=== PATIENT | male | born 1970 | race African-American/Black ===

== ENCOUNTER 2016-04-17 13:01 | Emergency (ER) | payer OTHER ==
[~2016-04-17] VITALS: Ht 185.4 cm; Wt 79.7 kg
[~2016-04-17 13:01] MED LIST: AUGMENTIN875 MG PO; CLINDAMYCIN HC300 MG PO; DOXEPIN HCL100 MG PO; KEFLEX500 MG PO; MOTRIN600 MG PO; NAPROSYN500 MG PO; NORCO 5/3251 TABLET PO; NORCO 7.5/321 TABLET PO; POTASSIUM CHLO10 ME3 PO; SUBOXONE 4 MG-1 EACH SL; SUBOXONE 8 MG-1 EAC2 SL; ZITHROMAX250 MG PO; ZOFRAN ODT4 MG PO
[2016-04-17 13:40] VITALS: BP 130/91
== END 2016-04-17 14:08 | disposition left against medical advice (07) ==
LOC: EME 13:01
DX: R11.10 Vomiting, unspecified (principal); Z53.21 Procedure and treatment not carried out due to patient leaving prior to being seen by health care provider; F19.20 Other psychoactive substance dependence, uncomplicated; F17.200 Nicotine dependence, unspecified, uncomplicated
CPT/HCPCS: 80053; 81003; 85027

== ENCOUNTER 2016-05-27 06:25 | Emergency (ER) | payer OTHER ==
[~2016-05-27] VITALS: Ht 188 cm; Wt 87.5 kg
[2016-05-27 07:27] LABS: EOSINOPHIL (%) 1.6 % (0-5); EOSINOPHIL COUNT 0.2 K/uL (0-0.3); HEMATOCRIT 35.1 % (38.0-50.0); IMMATURE GRANULOCYTE (%) 0.3 % (0.0-0.7); INSTRUMENT ABS NEUTROPHIL CT 5.4 K/uL; LYMPHOCYTE COUNT 2.8 K/uL (1.0-2.8); MCH 26.8 PG (29.0-34.0); MCHC 32.2 G/DL (30.0-36.0); MCV 83.4 FL (86-99); MEAN PLAT.VOLUME 9.3 uM^3 (9.0-12.4); MONOCYTE (%) 9.5 % (3-12); MONOCYTE COUNT 0.9 K/uL (0-0.8); NEUTROPHIL (%) 58.1 % (45-76); NEUTROPHIL COUNT 5.4 K/uL (1.8-6.4); PLATELET COUNT 356 K/uL (156-360); RBC DIS.WIDTH-SD 48.8 % (39-53); RED BLOOD COUNT 4.21 M/uL (4.00-5.50); WHITE BLOOD COUNT 9.3 K/uL (4.1-10.2)
[2016-05-27 07:58] LABS: CHLORIDE 105 mEq/L (99-109); POTASSIUM 3.8 mEq/L (3.7-5.4); SODIUM 141 mEq/L (136-147)
[2016-05-27 08:00] LABS: GLUCOSE 101 mg/dL (70-99)
[2016-05-27 08:01] LABS: ANION GAP 8 MEQ/L (2-14)
[2016-05-27 08:03] LABS: SERUM ETHYL ALCOHOL < 10 mg/dL
[2016-05-27 08:04] LABS: GFR ESTIMATE (CALCULATED) > 59 mL/min/
[2016-05-27 08:05] LABS: UREA NITROGEN (BUN) 6 mg/dL (9-23)
[2016-05-27 09:09] VITALS: BP 118/75
== END 2016-05-27 09:40 | disposition home or self-care (01) ==
LOC: EME 06:25
PROVIDERS: Emergency Medicine
DX: F19.10 Other psychoactive substance abuse, uncomplicated (principal); R51 Headache; F17.200 Nicotine dependence, unspecified, uncomplicated
CPT/HCPCS: 70450; 71020; 80048; 85025; 99281; 99284; G0480; J1885

== ENCOUNTER 2016-11-26 20:13 | Emergency (ER) | payer OTHER ==
[~2016-11-26] VITALS: Ht 185.4 cm; Wt 80.0 kg
[2016-11-26] MEDS ORDERED: PHENERGAN-CODE120 ML PO (21:25)
[2016-11-26] MEDS ORDERED: ZITHROMAX Z-PA250 MG PO (21:25)
[2016-11-26 21:50] VITALS: BP 148/84
== END 2016-11-26 21:51 | disposition home or self-care (01) ==
LOC: EME 20:13
DX: J06.9 Acute upper respiratory infection, unspecified (principal); R42 Dizziness and giddiness; R11.2 Nausea with vomiting, unspecified; R51 Headache; F17.200 Nicotine dependence, unspecified, uncomplicated
CPT/HCPCS: 94640; 99281; 99284